=== PATIENT | male | born 2005 | race Caucasian/White ===

== ENCOUNTER 2024-03-25 01:46 | Emergency (ER) | payer SELFPAY ==
[2024-03-25 01:52] VITALS: BP 145/76; PULSE 114; RESP 15; TEMP 36.6; O2SAT 98; BMI 25.1
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
== END 2024-03-25 02:20 ==
LOC: ED 02:15
PROVIDERS: Emergency Provider Family Medicine
DX: F10.129 Alcohol abuse with intoxication, unspecified (principal); V43.02XA Car driver injured in collision with other type car in nontraffic accident, initial encounter
CPT/HCPCS: 99283